=== PATIENT | male | born 1970 | race African-American/Black ===

== ENCOUNTER 2024-11-28 14:11 | Outpatient (AMB) | payer MEDICARE, MEDICAID, SELFPAY ==
[2024-11-28 14:13] VITALS: BP 108/56; PULSE 47; TEMP 37.1; O2SAT 97; BMI 22.3
--- NOTE | 2024-11-28 14:13 | A.OFFPC_ITS ---
Vital Signs 11/28/24 14:13 Height 4 ft 9.5 in Weight 104 lb 12.8 oz BMI 22.3 BP 108/56 L Blood Pressure Location Lt brachial Position Sitting Pulse 47 L Pulse Source Pulse Oximeter Temp 98.8 F Temp Source Oral Pulse Oximetry (%) 97 Oxygen Delivery Method Room Air Intake Visit Reasons: establish care Intake Note: Patient is a new patient here to establish care. Transferring care from [facility] in [place], [place]. Medical records have not been requested and have not been received. Patient completed Authorization to Release Medical Information form today. Drug Discovery Informatics Specialist Required: No Accompanied by: Brother Allergies No Known Allergies Allergy (Verified 11/28/24 14:38) Tobacco use date assessed: 11/28/24 Dental Screening Dental Screen Date: 11/28/24 Did you have a dental visit in the last 12 months?: Yes Did you have a dental problem in the last 6 months where you did not have access to dental care?: No Was dental information given to patient?: Patient has dentist HPI establish care HPI Details Patient is presenting establish care. The patient is a 54-year-old male with down syndrome accompanied by his brother Paco Rodriguez. Information was collected mostly from the patient's brother. Previous PCP: 3 years Last visit: Last PE: same Specialist:n/a OBGYN:n/a Past medical history: possible syncope around 6 months ago. EMS checked him out and said he was fine Medications: Family HX: Problem: Patient rather reports a possible syncopal episode about 6 months ago Reports that he was not on site when this happened. Apparently, EMS was called patient got up off the floor and reported that he tripped and fell. He was assessed by EMS that did not find any abnormalities. The patient was not advised or brought to the ER. No issues since. Patient per the also reports possible weight loss because the patient used to have a belly before. The patient verbalized that he has been working out and lifting weights with other family members. Since the patient has not been seen for over 3 years, it is hard to determine if this was a gradual weight loss due to being more active. The patient was noted to have a dried up white flaky patch on his right ng, lower abdomen and right posterior leg, concerning for psoriasis. EKG done in office shows sinus Martell with first- degree heart block. The patient's brother reports that his absence from the healthcare has been due to insurance changes. Patient denies chest pain, shortness of breath, heart palpitation, or dizziness. Denies abdominal pain or change in bowel habits or urinary symptoms. [facility] Medical History (Updated 11/29/24 @ 16:51 by CAITY Silva) Down syndrome Surgical History (Updated 11/28/24 @ 14:29 by Baryb Ray CMA) No pertinent past surgical history Family History (Updated 11/28/24 @ 14:29 by Barby Ray CMA) Mother Heart attack Stroke Other FHx: hypertension Social History (Updated 11/28/24 @ 14:28 by Barby Ray CMA) Household Members: Family Household Members Other:: Mother and sister Housing: House Alcohol intake: never Patient Tobacco Use Status: Never used Tobacco e-Cigarette/Vaping Use: Never Used service: No Current occupational status: employed and disabled Current occupation: [employer] Questionnaire PHQ-9 Over the last 2 weeks, how often have you been bothered by any of the following problems? 95534 - PHQ-9 Billing: Patient declined-do not bill Source: Developed by Drs. Mohit Boudreaux, Mary Reyna, Ethan Ortega and colleagues, with an educational yordan from [employer]. Thrive Questionnaire Date Thrive assessed: 11/28/24 I am a: Parent/Caregiver What is your living situation today?: I have a steady place to live Within the past 12 months, did the food you bought not last and you didn't have the money to get more?: Never true Within the past 12 months, did you worry whether your food would run out before you got money to buy more?: Never true Do you have trouble paying for medicines?: No Do you have trouble getting transportation to medical appointments?: No Do you have trouble paying your heating and electricity bill?: No Do you have trouble taking care of your child, family member or friend?: No Do you have trouble with day-to-day activities such as bathing, preparing meals, shopping, managing finances, etc.?: No Are you currently unemployed and looking for a job?: No Are you interested in more education?: No Please select the resources that you would like help with: None THRIVE Score: 0 AUDIT C Alcohol Use Questionnaire (AUDIT-C) 1. How often do you have a drink containing alcohol?: Never Total Score: 0 Score Reviewed/Action Taken: No Review of Systems Const Denies headache(s) Eyes Denies loss of vision ENT Denies vertigo, Denies dizziness, Denies headache(s) and Denies sore throat Card Denies chest pain, Denies leg edema and Denies lightheadedness Resp Denies cough, Denies hemoptysis and Denies wheezing GI Denies abdominal pain, Denies melena, Denies constipation, Denies diarrhea and Denies vomiting Denies dysuria, Denies urinary frequency and Denies urinary urgency Musc Denies arthralgias, Denies joint swelling, Denies numbness and Denies tingling Neuro Denies Abnormal speech present, Denies behavioral changes, Denies vertigo, Denies dizziness, Denies headache(s), Denies loss of vision, Denies memory loss, Denies numbness and Denies tingling Psych Denies anxiety, Denies behavioral changes, Denies depression, Denies memory loss and Denies panic attacks Yogesh/Lymph Denies easy bleeding and Denies easy bruising Aller/Immun Denies wheezing Physical exam (Primary Care) Vital Signs: Last Vital Signs Temp 98.8 F 11/28/24 14:13 Pulse 47 L 11/28/24 14:13 BP 108/56 L 11/28/24 14:13 Pulse Ox 97 11/28/24 14:13 Oxygen Delivery Method Room Air 11/28/24 14:13 BMI result Body Mass Index 22.3 Tobacco/Smoking Status: Tobacco use Status Tobacco use date assessed 11/28/24 11/28/24 14:17 Patient Tobacco Use Status Never used Tobacco 11/28/24 14:32 e-Cigarette/Vaping Use Never Used 11/28/24 14:32 Thrive Assessment: Date of Thrive Assessment Date Thrive assessed 11/28/24 11/28/24 14:32 Const General: healthy appearing, no acute distress, alert and awake Nutritional Appearance: well nourished Orientation/consciousness: oriented to person, oriented to place and oriented to time HENMT Ears: TM's normal bilaterally General nose exam: Normal nasal mucous membranes and turbinates present Eyes Conjunctivae: conjunctivae normal Sclerae: sclerae normal Pupils: Equal, round and reactive pupils present Neck Neck: Yes no lymphadenopathy and Yes no JVD Thyroid: Thyroid normal Carotids: no bruits Resp Effort & Inspection: normal respiratory effort and not tachypneic Auscultation: no crackles, no rales, no rhonchi and no wheezes Cardio Rate: regular rate Rhythm: regular rhythm Heart sounds: no murmurs and normal S1 and S2 GI Palpation (GI): Soft to palpation, nontender, no hepatomegaly and no splenomegaly Auscultation: normal bowel sounds Skin General skin exam: no rashes or lesions noted and dry skin Neuro General: oriented to person, oriented to place and oriented to time Cranial nerves: Yes Equal, round and reactive pupils present Speech: No Abnormal speech present Gait exam (Neuro): Normal gait present Motor exam (neuro): no tremor noted Extrem Right upper extremity: full ROM Left upper extremity: full ROM Right lower extremity: full ROM; no edema Left lower extremity: full ROM; no edema Psych Mental Status: mental status grossly normal Speech and movement: Normal speech and movement present Affect: normal affect Attitude: cooperative Thought process: Normal thought process present Office Procedures EKG [id number], Complete Coding Level of Care Code New Pt Level 4 (74924) Diagnoses Down syndrome Q90.9 Sinus martell-tachy syndrome I49.5 First degree heart block I44.0 Psoriasis L40.9 Syncope, unspecified syncope type R55 Syncope type: unspecified CPT Codes EKG - CPT: 87154-[id number], Complete ([id number]) Time Spent (min) 39 Assessment & Plan Assessment & Plan (1) Down syndrome: Code(s): Q90.9 - Down syndrome, unspecified Category: Medical (2) Sinus martell-tachy syndrome: Code(s): I49.5 - Sick sinus syndrome Category: Medical (3) First degree heart block: Code(s): I44.0 - Atrioventricular block, first degree Category: Medical (4) Psoriasis: Code(s): L40.9 - Psoriasis, unspecified Category: Medical (5) Syncopal episodes: Code(s): R55 - Syncope and collapse Category: Medical Qualifiers: Syncope type: unspecified Qualified Code(s): R55 - Syncope and collapse Plan The current plan involves monitoring the patient's bradycardia and heart block, deemed benign at this time. Patient's brother reports possible syncopal episode that was evaluated by EMS without any concerns to going to the emergency room. The brother was not at the site and is not sure if the patient just had a fall or if he had a true syncopal episode. It was reported that the patient jumped up off the floor and said that he tripped and fell. A topical cream was prescribed to manage new psoriatic symptoms. Weight loss and the patient's general health habits prompted recommendations for lifestyle modifications, including dietary management and exercise, to sustain healthy weight levels. Upcoming labs and a seven-week follow-up were scheduled to further assess blood cholesterol levels and evaluate overall health status through a comprehensive physical examination. Patient was informed and verbally consented to the use of an ambient scribe for clinic note documentation during this visit. Orders: Orders AMB EKG-In Office 11/28/24 Z13.6 - Encounter for screening for cardiovascular disorders Comprehensive [place]. Panel Fast 11/28/24 Z00.00 - Encounter for general adult medical examination without abnormal findings Complete Blood Count Auto Diff 11/28/24 Z00.00 - Encounter for general adult medical examination without abnormal findings Vitamin D 25-OH Total 11/28/24 Z00.00 - Encounter for general adult medical examination without abnormal findings UA CC w/rflx Micro + Cult 11/28/24 Z. - Encounter for general adult medical examination without abnormal findings TSH reflex Free T4 11/28/24 Z. - Encounter for general adult medical examination without abnormal findings Lipid Panel 11/28/24 Z. - Encounter for general adult medical examination without abnormal findings Glucose Fasting 11/28/24 Z00.00 - Encounter for general adult medical examination without abnormal findings Medications: New triamcinolone acetonide 0.1% 1 appl topical BID 80 grams 0RF
== END 2024-11-28 15:12 | disposition home or self-care (01) ==
DX: Q90.9 Down syndrome, unspecified (principal); I49.5 Sick sinus syndrome; I44.0 Atrioventricular block, first degree; L40.9 Psoriasis, unspecified; R55 Syncope and collapse

== ENCOUNTER → 2024-11-28 14:11 | Outpatient (BNVA) | payer MEDICARE, MEDICAID, SELFPAY | DX: Q90.9 Down syndrome, unspecified (principal); I49.5 Sick sinus syndrome; I44.0 Atrioventricular block, first degree; L40.9 Psoriasis, unspecified; R55 Syncope and collapse | CPT/HCPCS: 93005; 99202 ==

== ENCOUNTER 2025-01-06 07:33 | Outpatient (REF) | payer MEDICARE, MEDICAID, SELFPAY ==
[2025-01-06 07:46] LABS: MANUAL DIFF FLAG NO
[2025-01-06 08:08] LABS: Basophils Absolute Auto 0.1 X10*3/uL (0.0-0.2); Basophils Percent Auto 2.5 % (0-2); Eosinophils Absolute Auto 0.2 X10*3/uL (0.0-0.4); Eosinophils Percent Auto 3.3 % (0-4); Hematocrit 42.3 % (42.0-52.0); Hemoglobin 15.2 g/dl (14.0-18.0); Imm Gran Abs Auto 0.02 X10*3/uL (0.00-0.03); Imm Gran Pct Auto 0.4 % (0.0-0.4); Lymphocytes Absolute Auto 1.6 X10*3/uL (1.2-4.9); Mean Corpuscular HGB Conc 35.9 g/dl (31.0-36.0); Mean Corpuscular Hemoglobin 36.6 pg (27.0-33.0); Mean Corpuscular Volume 101.9 fL (80.0-98.0); Mean Platelet Volume 9.5 fL (9.4-12.4); Monocytes Absolute Auto 0.5 X10*3/uL (0.1-1.2); Monocytes Percent Auto 10.1 % (2-11); Neutrophils Absolute Auto 2.8 x10*3/uL (2.0-8.3); Neutrophils Percent Auto 53.7 % (45-73); Platelet Count 183 X10*3/uL (160-400); Red Blood Count 4.15 X10*6/uL (4.60-5.80); Red Cell Distribution Width 11.9 % (11.0-16.0); White Blood Count 5.2 X10*3/uL (4.8-10.8)
[2025-01-06 08:25] LABS: Appearance Urine Clear; Color Urine Yellow; Glucose Urine UA Negative (Negative); Leukocyte Esterase Urine Negative (Negative); Nitrite Urine Negative (Negative); PH 5.5 (5.0-9.0); Urine Blood Negative (Negative); Urine Ketones Negative (Negative); Urine Protein Negative (Neg-Trace)
[2025-01-06 08:47] LABS: Alanine Aminotransferase 35 U/L (0-40); Albumin Level 4.2 g/dL (3.5-5.0); Alkaline Phosphatase 87 U/L (39-117); Anion Gap 11 (12-20); Aspartate Amino Transferase 37 U/L (5-37); Bilirubin Total 0.7 mg/dL (0.0-1.0); Blood Urea Nitrogen 23 mg/dL (9-16); Calcium 9.1 mg/dL (8.4-10.2); Carbon Dioxide 29 mmol/L (22-29); Chloride 109 mmol/L (96-108); Cholesterol 185 mg/dL (<200); Estimated Glomerular Filt Rate 60; Glucose Fasting 86 mg/dL (60-99); HDL Cholesterol 48 mg/dL (>40); LDL Cholesterol Calculated 125 mg/dL (<100); Potassium 3.7 mmol/L (3.3-5.1); Sodium 145 mmol/L (135-145); Total Protein 7.3 g/dL (6.5-8.0); Triglycerides 62 mg/dL (<150)
[2025-01-06 09:05] LABS: TSH reflex Free T4 2.02 uIU/mL (0.32-4.0); Vitamin D 25-OH Total 17.9 ng/mL (>30)
== END 2025-01-06 07:34 | disposition home or self-care (01) ==
LOC: HO.LAB 07:33
DX: Z00.00 Encounter for general adult medical examination without abnormal findings (principal)
CPT/HCPCS: 36415; 80053; 80061; 81003; 82306; 84443; 85025

== ENCOUNTER 2025-01-13 09:30 | Outpatient (AMB) | payer MEDICARE, MEDICAID, SELFPAY ==
--- NOTE | 2025-01-13 09:32 | AM.OFFVISMDC ---
Intake Vital Signs 01/13/25 09:39 Height 4 ft 9.5 in Weight 104 lb BMI 22.1 BP 88/48 L Blood Pressure Location Lt brachial Position Sitting Pulse 48 L Pulse Source Pulse Oximeter Temp 97.3 F Temp Source Temporal Artery Scan Pulse Oximetry (%) 99 Oxygen Delivery Method Room Air Intake Visit Reasons: AWV Kinesiologist Required: No Inspector Assemblies And Installations: Inspector Assemblies And Installations Present Accompanied by: Father Allergies No Known Allergies Allergy (Verified 01/13/25 09:50) Medication List - Last Reconciled 01/13/25 by CAITY Silva triamcinolone acetonide 0.1% 1 appl topical BID HPI AWV HPI Details The patient is presenting for his wellness visit The patient is mentally challenged, most of the questions were answered by his brother who is his primary caregiver Dentist:no, will make appt Eye:no, will make appt Snellen: Right: Left: Corrected vision: he supposed wear eyeglasses, but he had not worn them in a while-needs new exam to determine if his glasses is still correct for him STI screening:n/a Colonoscopy: no, will order a cologuard Pap Smer:n/a PHQ-9: Flu: no anymore, he used to take this prior COVID: -not sure, his brother thought that he had this at the [facility] that he was working at [employer]: not sure but thinks that he had it within 10 years and does not wish to get this today Diet:regular Exercise:Reports doing push ups infrequently [facility] [place] of care reviewed with the patient's brother. The patient's brother reports that he has his healthcare proxy but he is not sure if he has the appropriate forms completed. The healthcare proxy and MOLST forms were given to the patient brother to be completed and return at his soonest convenience. HPI Comments History of Present Illness Details reviewed past medical history- yes reviewed surgical / hospitalization history- yes reviewed current medications- yes reviewed family history- yes home safety throw rugs? no grab bars? yes raised toilet seat? no working smoke detectors? yes activities of daily living difficulty bathing or showering? yes difficulty dressing? yes difficulty using the toilet? yes difficulty getting in and out of bed? yes difficulty walking?no receives help from other person's with any of the above tasks? instrumental activities of daily living uses telephone - yes gets to place out of walking distance-no go shopping for groceries- no repairs own meals- yes does own minor home maintenance- no does own laundry- yes does own housework-yes manages own money- no currently takes medication- no end of life planning discussed advanced directives- yes advanced directives on file? no forms discussed wishes expressed in advanced directives.yes fall risk have you had any falls with injuries in the past year?no have you had 2 or more falls in the past year? no fall risk assessment: yes [facility] Medical History Down syndrome Surgical History No pertinent past surgical history Family History Mother Heart attack Stroke Other FHx: hypertension Social History Household Members: Family Household Members Other:: Mother and sister Housing: House Alcohol intake: never Patient Tobacco Use Status: Never used Tobacco e-Cigarette/Vaping Use: Never Used service: No Current occupational status: employed and disabled Current occupation: [employer] Questionnaire Medicare Wellness Checkup What gender do you identify with?: male During the past 4 weeks, how much have you been bothered by emotional problems such as feeling anxious, depressed, irritable, sad or downhearted, and blue?: not at all During the past 4 weeks, has your physical & emotional health limited your social activities with family, friends, neighbors, or groups?: not at all During the past 4 weeks, how much bodily pain have you generally had?: no pain During the past 4 weeks, was someone available to help you if you needed & wanted help?: yes, as much as I wanted During the past 4 weeks, what was the hardest physical activity you could do for at least 2 minutes?: moderate Can you get to places out of walking distance without help? (For eg., can you travel alone on buses, taxis or drive your car?): No Can you go shopping for groceries or clothes without someone's help?: No Can you prepare your own meals?: Yes (only simple meals) Can you do your housework without help?: Yes Because of any health problems, do you need the help of another person with your personal care needs such as eating, bathing, dressing or getting around the house?: No Can you handle your own money without help?: No During the past 4 weeks, how would you rate your health in general?: good During the past 4 weeks how have things been going for you?: pretty well Are you having difficulties driving your car?: no Do you always fasten your seat belt when you are in a car?: yes, usually During past 4 weeks, have you been bothered by the following: never: Sexual problems?, Teeth or denture problems? and Problems using the telephone? and seldom: Falling or dizzy when standing up, Trouble eating well? and Tiredness or fatigue? Have you fallen 2 or more times in the past year?: No Are you afraid of falling?: No Are you a smoker?: no During the past 4 weeks, how many drinks of wine, beer, or other alcoholic beverages did you have?: no alcohol at all Do you exercise for about 20 minutes 3 or more times a week?: no, I usually do not exercise this much Have you been given information to help with the following?: no: Hazards in your house that might hurt you? and no: Keeping track of your medications? How often do you have trouble taking medicines the way you have been told to take them?: I do not have to take medicine How confident are you that you can control & manage most of your health problems?: somewhat confident What is your race?: or origin or descent Activity of Daily Living Bathing - sponge bath, tub bath or shower: receives no assistance (gets in/out by self, if usual bathing means Dressing - getting clothes from closets & drawers, including inner/outer garments & fasteners.: gets clothes & gets completely dressed without help Toileting - going to the 'toilet room' for urine/bowel elimination & cleaning self/arranging clothes: goes to toilet room, cleans self, arranges clothes without help Transfer: moves in & out of bed and chair without help (may use support object) Continence: controls urination/bowel movements completely by self Feeding: feeds self without help Total Score: 0 Information obtained from: informant Using telephone: independent Traveling: needs assistance Shopping: needs assistance Preparing meals: independent (simple meals) Housework: needs assistance Taking medicine: needs assistance Managing money: needs assistance PHQ-9 Over the last 2 weeks, how often have you been bothered by any of the following problems? 1. Little interest or pleasure in doing things: not at all 2. Feeling down, depressed, or hopeless: not at all 3. Trouble falling or staying asleep, or sleeping too much: not at all 4. Feeling tired or having little energy: several days 5. Poor appetite or overeating: several days 6. Feeling bad about yourself - or that you are a failure or have let yourself or your family down: not at all 7. Trouble concentrating on things, such as reading the newspaper or watching television: not at all 8. Moving or speaking so slowly that other people could have noticed. Or the opposite - being so fidgety or restless that you have been moving around a lot more than usual: not at all 9. Thoughts that you would be better off or of hurting yourself in some way: not at all Total score: 2 Depression Screening Interpretation: Negative Depression Screening Done: Yes Source: Developed by Drs. Mohit Boudreaux, Mary Reyna, Ethan Ortega and colleagues, with an educational yordan from [employer]. Review of Systems Const Details: The patient is unable to answer most of the questions so most of the information was obtained from the patient's brother Denies headache(s) Eyes Denies loss of vision ENT Denies vertigo, Denies dizziness, Denies headache(s) and Denies sore throat Card Denies chest pain, Denies leg edema and Denies lightheadedness Resp Denies cough, Denies hemoptysis and Denies wheezing GI Denies abdominal pain, Denies melena, Denies constipation, Denies diarrhea and Denies vomiting Denies dysuria, Denies urinary frequency and Denies urinary urgency Musc Denies arthralgias, Denies joint swelling, Denies numbness and Denies tingling Skin/Breast Reports lesions (psoriasis patches to extremities) Neuro Denies behavioral changes, Denies vertigo, Denies dizziness, Denies headache(s), Denies loss of vision, Denies memory loss, Denies numbness and Denies tingling Psych Denies anxiety, Denies behavioral changes, Denies depression, Denies memory loss and Denies panic attacks Yogesh/Lymph Denies easy bleeding and Denies easy bruising Aller/Immun Denies wheezing Physical Exam Vital Signs: Last Vital Signs Temp 97.3 F 01/13/25 09:39 Pulse 48 L 01/13/25 09:39 BP 88/48 L 01/13/25 09:39 Pulse Ox 99 01/13/25 09:39 Oxygen Delivery Method Room Air 01/13/25 09:39 BMI result Body Mass Index 22.1 Const Other: IPPE/AWV: Balance Romberg Yes . Tandem walk no Walk and Turn Yes . Rise from sit to stand Yes . Vision Corrective lens yes-but needs new glasses Vision screen -the patient's brother will make an appt Hearing Whisper test failed. unable to test the patient accurately. Not sure if he was unable to repeat the verbalized word due to confusion Urinary incont. no. EKG done on his previous visit. He has sinus bradycardia with first degree heart block. Results Reviewed Results Reviewed: Laboratory Tests 01/06/25 01/06/25 07:42 07:45 WBC 5.2 RBC 4.15 L Hgb 15.2 Hct 42.3 MCV 101.9 H MCH 36.6 H MCHC 35.9 RDW 11.9 Plt Count 183 MPV 9.5 Sodium 145 Potassium 3.7 Chloride 109 H Carbon Dioxide 29 Anion Gap 11 L BUN 23 H Creatinine 1.25 Estimated GFR 60 Fasting Glucose 86 Calcium 9.1 Total Bilirubin 0.7 AST 37 ALT 35 Alkaline Phosphatase 87 Total Protein 7.3 Albumin 4.2 Triglycerides 62 Cholesterol 185 LDL Cholesterol, Calc 125 H HDL Cholesterol 48 25-OH Vitamin D Total 17.9 L TSH 2.02 Urine Color Yellow Urine Appearance Clear Urine pH 5.5 Ur Specific [place] 1.020 Urine Protein Negative Urine Glucose (UA) Negative Urine Ketones Negative Urine Blood Negative Urine Nitrite Negative Ur Leukocyte Esterase Negative Assessment & Plan Assessment & Plan (1) Annual physical exam: Code(s): Z00.00 - Encounter for general adult medical examination without abnormal findings Plan: Preventive guidelines and recent lab reviewed with patient's brother. The patient's brother is unsure of the patient covid and tdap status because he thinks that the patient might have been given these vaccines while he was working at the [employer]. He has been to the dentist or got his eyes checked for couple years now. The patient's brother reports that he will make an appt in the near future to get these exams done. The patient has never had a colonscopy, the patient brother thinks that this test would be too traumatizing for the patient and opted to get the cologuard test instead. (2) Down syndrome: Code(s): Q90.9 - Down syndrome, unspecified Plan: The patient is somewhat independent and was working at the [employer]. He can carry out simple task and prepare simple meals for himself. He does his ADLs himself. He is unable to complete complex task or decision making and relies on his brother to make decsions. (3) First degree heart block: Code(s): I44.0 - Atrioventricular block, first degree Plan: The had ekg done on 12/03/24 in office. Showed sinus bradycardia with a first degree heart block. (4) Psoriasis: Code(s): L40.9 - Psoriasis, unspecified Plan: The patient has psoriasis patches on his extremities. Triamcinolone acetonide 0.1% 1 appl topical bid ordered. (5) Syncopal episodes: Code(s): R55 - Syncope and collapse Qualifiers: Syncope type: unspecified Qualified Code(s): R55 - Syncope and collapse Plan: There was question of the patient falling or having a syncope episodes. The patient was noted lying down on the ground outside and the patient's family called the EMS upon the arrival the patient jump up and stated that he tripped and fell. He was evaluated by the EMS and deemed to be stable and was not brought to the hospital. There has not been any other episodes since. EKG was done in office due the cardiac risks down syndrome poses. This shows a stable sinus bradycaria with first degree heart block. Educated the patient's brother on the risks and told to make sure he goes to the ER if this every happens again. (6) HLD (hyperlipidemia): Code(s): E78.5 - Hyperlipidemia, unspecified Qualifiers: Hyperlipidemia type: pure hypercholesterolemia Qualified Code(s): E78.00 - Pure hypercholesterolemia, unspecified Plan: LDL 125 on 01/06/2025, goal less than 100 Discussed lifestyle modifications including dietary changes and physical activity will recheck lipid panel in 1 year (7) Vitamin D deficiency: Code(s): E55.9 - Vitamin D deficiency, unspecified Plan: He was started on cholecalciferol 50 mcg daily. Will recheck vitamin D level in one year. Orders: Orders Complete Blood Count Auto Diff 1 Year Z00.00 - Encounter for general adult medical examination without abnormal findings Lipid Panel 1 Year Z00.00 - Encounter for general adult medical examination without abnormal findings Vitamin D 25-OH Total 1 Year Z00.00 - Encounter for general adult medical examination without abnormal findings Comprehensive [place]. Panel Fast 1 Year Z00.00 - Encounter for general adult medical examination without abnormal findings TSH reflex Free T4 1 Year Z00.00 - Encounter for general adult medical examination without abnormal findings UA CC w/rflx Micro + Cult 1 Year Z00.00 - Encounter for general adult medical examination without abnormal findings Medications: New cholecalciferol (vitamin D3) 50 mcg PO DAILY 60 caps 3RF Quality Reporting (2019) Depression/Bipolar (159/160/161/177) PHQ-9: Total score: 2 Coding Level of Care Code Medicare First (G0438) Diagnoses Annual physical exam Z00.00 Down syndrome Q90.9 First degree heart block I44.0 Psoriasis L40.9 Syncope, unspecified syncope type R55 Syncope type: unspecified Pure hypercholesterolemia E78.00 Hyperlipidemia type: pure hypercholesterolemia Vitamin D deficiency E55.9 CPT Codes Advance Care Planning - Advance Care Planning discussion: On file, no changes ([id number]) Time Spent (min) 39 Advance Care Planning Advance Care Planning discussion: On file, no changes Date of discussion: 01/13/25 Who was present: The patient and his brother Forms completed: Health Care Proxy (was given to be completed) and MOLST (was given to be completed)
[2025-01-13 09:39] VITALS: BP 88/48; PULSE 48; TEMP 36.3; O2SAT 99; BMI 22.1
== END 2025-01-13 10:23 | disposition home or self-care (01) ==
LOC: HO.HMCH 09:30
DX: Z00.00 Encounter for general adult medical examination without abnormal findings (principal); Q90.9 Down syndrome, unspecified; I44.0 Atrioventricular block, first degree; L40.9 Psoriasis, unspecified; R55 Syncope and collapse; E78.00 Pure hypercholesterolemia, unspecified; E55.9 Vitamin D deficiency, unspecified

== ENCOUNTER → 2025-01-13 09:30 | Outpatient (BNVA) | payer MEDICARE, MEDICAID, SELFPAY | DX: Z13.89 Encounter for screening for other disorder (principal) ==